=== PATIENT | female | born 1990 | race Caucasian/White ===

== ENCOUNTER 2025-06-28 16:30 | Outpatient (CLI) | payer OTHER, SELFPAY | END 2025-06-28 16:31 | disposition home or self-care (01) | LOC: AMB 07-02 12:07 | PROVIDERS: Visit Provider Student in an Organized Health Care Education/Training Program | DX: S79.911A Unspecified injury of right hip, initial encounter (principal); V43.62XA Car passenger injured in collision with other type car in traffic accident, initial encounter; Y92.410 Unspecified street and highway as the place of occurrence of the external cause | CPT/HCPCS: A0425; A0427 ==

== ENCOUNTER 2025-06-28 16:51 | Emergency (ER) | payer OTHER, SELFPAY ==
[2025-06-28 17:00] VITALS: BP 127/84; PULSE 111; RESP 22; TEMP 37.1; O2SAT 99; BMI 35.5
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
[2025-06-28 18:24] LABS: Troponin, Point-of-Care* 0.00 ng/ml (0.01-0.04)
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
[2025-06-28] MEDS: ACETAMINOPHEN 500 MG TABLET 1000 MG PO (18:35)
[2025-06-28 18:36] VITALS: BP 112/80; PULSE 90; RESP 16; O2SAT 98
--- OUTSIDE RECORDS SUMMARY | 2025-06-28 18:42 | XMS_ITS | Clinical Summary ---
Author Organization [facility] Address [address] [place] [address] Care Team Providers Care Architectural Intern Name Role Phone Shanell Marrero M.D. Primary Care Provider Source Comments Patient records contain information from all sites at [facility]. For routine questions regarding patient records, call [phone] during business hours, M-F 8:00 AM - 5:00 PM Central Time. Record requests for emergency care only can be directed to [phone] at any time.[facility] Allergies No known active allergies Medications nystatin (Mycostatin) 100,000 unit/gram creamIndication s:Candidiasis Intertrigo Apply 1 Application topically 2 (two) times a day. Apply to rash. 30 g 5 Active nystatin (Nystop) 100,000 unit/gram powderIndicatio ns:Candidiasis Intertrigo Apply 1 Application topically 3 (three) times a day. Apply to area below abdomen. 30 g 5 Active levothyroxine 75 mcg tablet TAKE 1 TABLET BY MOUTH EVERY DAY 90 tablet 3 5 Active Active Problems Problem Noted Date Diagnosed Date Hypothyroidism 10/16/2020 Vertigo Benign Paroxysmal Positional Bilateral 1 12/17/2019 Resolved Problems Problem Noted Date Diagnosed Date Resolved Date False Labor At Or After 37 C ompleted Weeks Of Gestation 06/14/2022 10/12/2022 40 Weeks Gestation 06/14/2022 10/12/2022 Encounters Date Type Department Care Team Description 05/16/2025 Refill Department of Family Medicine, [facility], in [place], [place] [address] [place] [address] Shanell Marrero M.D. Med Refill from Last 3 Months Immunizations Immunization Administration Dates Next Due DTaP (Infanrix, Tripedia) 02/12/2014 SARS-COV-2 (COVID-19) - SONJA BURRIS (J&J)(Discontinued) 02/13/2021 Tdap 03/24/2022,04/22/2015,02/12/2014 influenza trivalent vaccine (6 months and older)(PF) 08/10/2016 influenza vaccine quad (FLUZ ONE/FLUARIX) (6 months and older)(PF) 09/07/2018,08/19/2015 Family History Medical History Relation Name Comments Coronary artery disease Father Unruly Marrero 8 years ago Stroke Paternal Grandmother Wilda Marrero Hypothyroidism Sister Lauren Marrero Thyroid disease Sister Lauren Marrero Relation Name Status Comments Father Unruly Marrero Paternal Grandmother Wilda Marrero Alive Social History Tobacco Use Types Packs/Day Years Used Date Smoking Tobacco: Former Cigarettes 0.3 13.7 0 2009 - 03/11/2023 Passive Smoke Exposure: Never Smokeless Tobacco: Never Alcohol Use Standard Drinks/Week Comments Not Currently 0 (1 standard drink = 0.6 oz pure alcohol) Have not drank since July 2019 [facility] Jodangeities Answer Date Recorded In the past 12 months has [facility], gas, oil, or water [employer] threatened to shut off services in your home? No 01/09/2025 Humiliation, Afraid, Rape, and Kick questionnair e Answer Date Recorded Within the last year, have y ou been afraid of your partner or ex-partner? No 10/10/2022 Within the last year, have y ou been humiliated or emotionally abused in other ways by your partner or ex-partner? No Within the last year, have y ou been kicked, hit, slapped, or otherwise physically hurt by your partner or ex-partner? No 10/10/2022 Within the last year, have y ou been raped or forced to have any kind of sexual activity by your partner or ex-partner? No 10/10/2022 Hunger Vital Sign Answer Date Recorded Within the past 12 months, y ou worried that your food would run out before you got the money to buy more. Never true 01/10/20 25 Within the past 12 months, t he food you bought just didn't last and you didn't have money to get more. Never true 01/09/2025 PRAPARE - Transportation Answer Date Re corded In the past 12 months, has l ack of transportation kept you from medical appointments or from getting medications? No 02/2025 In the past 12 months, has l ack of transportation kept you from meetings, work, or from getting things needed for daily living? No 01/09/2025 Housing Stability Answer Date Recorded What is your living situation today? I have a [facility] place to live 01/09/2025 Education Answer Date Recorded What is the highest level of school you have completed or the highest degree you have received? Associate degree: academic program 10/10/2022 Comments No Sex and Gender Information Value Date Recorded Sex Assigned at Female 01/09/2025 9:17 AM BIOMED TECH Legal Sex Female 9:30 PM BIOMED TECH Gender Identity Female 01/09/2025 9:17 AM BIOMED TECH Sexual Orientation Straight 11/18/2020 9: 38 AM BIOMED TECH Last Filed Vital Signs Vital Sign Reading Time Taken Comments Blood Pressure 136/78 01/12/2025 9:26 AM BIOMED TECH Pulse 78 01/12/2025 9:26 AM BIOMED TECH Temperature 36.4 C (97.6 F) 01/12/2025 9:26 AM BIOMED TECH Respiratory Rate 17 06/15/2022 7:50 AM CDT Oxygen Saturation 97% 06/15/2022 7:50 AM CDT Inhaled Oxygen Concentration - - Weight 110 kg (242 lb 8.1 oz) 01/12/2025 9:26 AM BIOMED TECH Height 169.5 cm (5' 6.73) 01/12/2025 9:26 AM CS T Body Mass Index 38.29 01/12/2025 9:26 AM BIOMED TECH Plan of Treatment Health Maintenance Due Date Last Done Comments Hepatitis B Vaccines (1 of 3 - 19+ 3-dose series) 2009 HPV Vaccines (1 - 3-dose SCDM series) 2017 COVID-19 Vaccine ( season) 2024 02/13/2021 Influenza Vaccine (#1) 2025 8, 08/10/2016, 08/19/2015 Thyroid Stimulating Hormone (TSH) test for thyroid function 01/12/2026 01/12/2025, 10/29/2023, 10/12/2022, Additional history exists Cervical/Vaginal Cancer Screening 01/12/2030 01/12/2025, 01/12/2025, 10/08/2021 (Performed elsewhere) DTaP,Tdap,and Td Vaccines (5 - Td or Tdap) 03/24/2032 03/24/2022, 04/22/2015, 02/12/2014, Additional history exists Hepatitis C Screening Addressed 10/08/2021 (Performed elsewhere) Overridden with the intention of not completing the topic HIV Screening Addressed 06/14/2022 (Perf ormed elsewhere) Overridden with the intention of not completing the topic Depression Screening (Annual PHQ-2) Completed 01/12/2025, 01/09/2025 IPV Vaccines Aged Out No longer eligi ble based on patient's age to complete this topic Pneumococcal vaccine (0-49 years) Aged Out No longer eligible b ased on patient's age to complete this topic Procedures Procedure Name Priority Date/Time Associated Diagnosis Comments HPV WITH GENOTYPING, PCR, THINPREP Routine 01/12/2025 10:06 AM BIOMED TECH THYROID-STIMULATING HORMONE-SENSITIVE (S-TSH) Routine 01/12/2025 9:21 AM BIOMED TECH Hypothyroidism from Last 3 Months or Most Recently Relevant to Health Maintenance Results * HPV with Genotyping, PCR, ThinPrep (01/12/2025 10:06 AM BIOMED TECH) HPV with Genotyping, ThinPrep, PCR Negative Negative 01/15/2025 7:40 PM CDT MKTO Comment: Negative for high risk HPV by nucleic acid amplification. The following high risk HPV types were not detected: 16, 18, 31, 33, 35, 39, 45, 51, 52, 56, 58, 59, 66, and 68 This result does not rule out HPV in the patient, as the sensitivity of the test depends on the timing of the specimen collection and the quality of the specimen. Result should be correlated with patient's history, clinical presentation, and [facility] cytology report. 01/12/2025 10:0 6 AM BIOMED TECH 01/12/2025 1:46 PM BIOMED TECH Shanell Marrero M.D. LAB MICROBIOLOGY - GENE RAL ORDERABLES Final Result Performing Organization Address City/[facility]/ZIP Co de Phone Number [facility] [address] [place] [address], [place] MK[place] [address] [facility] [address] [place] [address] * S-TSH (Thyroid-Stimulating Hormone - Sensitive) (01/12/2025 9:21 AM BIOMED TECH) TSH, Sensitive 3.3 0.3 - 4.2 mIU/L 01/12/2025 10:15 AM BIOMED TECH OWAT Blood (Blood, Venous) 01/12/2025 9:21 AM BIOMED TECH 01/12/2025 9:24 AM BIOMED TECH Shanell Marrero M.D. LAB BLOOD ADD-ON Final Result [facility] [address] [place] [address], [place] OWAT [facility] in [place] [address] [place] [address] from Last 3 Months or Most Recently Relevant to Health Maintenance Insurance [facility] [id number] [place] [id number] Advance Directives For more information, please contact: [phone] * Full Code (Latest Code Status on File) Date Activated Date Inactivated Comments 06/14/2022 10:25 AM 06/15/2022 1:49 PM Question Answer Comments Full Code: Discussed Care Teams Architectural Intern Relationship Specialty Start Date End Date Shanell Marrero M.D. [address] [place] [phone] PCP - General Family Medicine 10/07/22
--- OUTSIDE RECORDS SUMMARY | 2025-06-28 18:42 | XMS_ITS | Encounter Summary ---
Author Organization [facility] Address [address] [place] [address] Care Team Providers Care Bench Assembler Electrical Name Role Phone Shanell Marrero M.D. Primary Care Provider Reason for Visit * Reason Comments Med Refill Encounter Details Date Type Department Care Team (Late st Contact Info) Description 05/16/2025 Refill Department of Family Medicine, [facility], in [place], [place] [address] [address] Shanell Marrero M.D. [address], [place] [address] Med Refill Social History Tobacco Use Types Packs/Day Years Used Date Smoking Tobacco: Former Cigarettes 0.3 13.7 0 2009 - 03/11/2023 Passive Smoke Exposure: Never Smokeless Tobacco: Never Alcohol Use Standard Drinks/Week Comments Not Currently 0 (1 standard drink = 0.6 oz pure alcohol) Have not drank since July 2019 [facility] Utilities Answer Date Recorded In the past [address] [facility] [employer], gas, oil, or water company threatened to shut off services in your [...] your living situation today? I have a [facility] place to live 01/09/2025 Education Answer Date Recorded What is the highest level of school you have completed or the highest degree you have received? Associate degree: academic program 10/10/2022 Comments No Sex and Gender Information Value Date Recorded Sex Assigned at Female 01/09/2025 9:17 AM TIN CUTTER Legal Sex Female 9:30 PM TIN CUTTER Gender Identity Female 01/09/2025 9:17 AM TIN CUTTER Sexual Orientation Straight 11/18/2020 9: 38 AM TIN CUTTER documented as of this encounter Plan of Treatment Not on file documented as of this encounter Visit Diagnoses Not on filedocumented in this encounter Care Teams Bench Assembler Electrical Relationship Specialty Start Date End Date Shanell Marrero M.D. [address], [place] [address] PCP - General Family Medicine 10/07/22 documented as of this encounter
== END 2025-06-28 19:06 | disposition home or self-care (01) ==
PROVIDERS: Emergency Provider Student in an Organized Health Care Education/Training Program
DX: S76.011A Strain of muscle, fascia and tendon of right hip, initial encounter (principal); V43.62XA Car passenger injured in collision with other type car in traffic accident, initial encounter
CPT/HCPCS: 36415; 71046; 73090; 73502; 84484; 93005; 99283; 99284; A9270